=== PATIENT | male | born 1955 | race Caucasian/White ===

== ENCOUNTER 2021-12-23 11:48 | Inpatient (IN) ==
[2021-12-23] MEDS ORDERED: Heparin 1,000 UNITS/500 mL 500 ML ONE ×2 (11:50→14:31)
[2021-12-23] MEDS ORDERED: 0.9 % Sodium Chloride 2,000 ML ONE (11:50)
[2021-12-23] MEDS ORDERED: *HR* Heparin 10,000 UNIT/10 ML VIAL ONE (11:50)
[2021-12-23] MEDS ORDERED: Iopamidol - 370 200 ML INFUS..BTL ONE ×3 (11:50→14:53)
[2021-12-23] MEDS ORDERED: Nitroglycerin 1,000 MCG/5 ML VIAL IV ONE ×2 (11:50→14:50)
[2021-12-23] MEDS ORDERED: *HR* Bivalirudin 250 MG VIAL IVC ONE ×2 (12:11→14:14)
[2021-12-23] MEDS ORDERED: *HR* Midazolam HCl 2 MG/2 ML VIAL ONE ×2 (13:10→14:43)
[2021-12-23] MEDS ORDERED: *HR* FentaNYL (PF) 100 MCG/2 ML VIAL ONE (13:10)
[2021-12-23] MEDS ORDERED: *HR* Atropine Sulfate 1 MG/10 ML SYRINGE ONE ×2 (13:34→16:08)
[2021-12-23] MEDS ORDERED: Acetaminophen 325 MG TABLET PO PRN (16:00)
[2021-12-23] MEDS ORDERED: 0.9 % Sodium Chloride 1,000 ML IVC SCH (16:00)
[2021-12-23] MEDS ORDERED: Nitroglycerin 0.4 MG TAB.SUBL SL PRN (16:00)
[2021-12-23] MEDS ORDERED: Metoprolol XL (24 HR) Succ 25 MG TAB.ER.24H PO SCH (16:15)
[2021-12-23] MEDS: Nicotine 14 MG PATCH.TD24 TD SCH (16:46)
[2021-12-23 17:11] LABS: Basophils % 0.2 %; Eosinophils % 0.1 %; Hematocrit 46.2 % (37.5-50.1); Hemoglobin 15.5 g/dL (12.9-16.9); Immature Granulocytes % 0.4 % (0-4); Lymphocytes # 1.1 K/mcL (0.6-4.6); Lymphocytes % 9.1 %; Mean Corpuscular HGB Conc 33.5 g/dL (31.6-35.5); Mean Corpuscular Hemoglobin 31.3 pg (28.0-33.3); Mean Corpuscular Volume 93.1 fL (83.0-100.0); Mean Platelet Volume 9.6 fL (9.4-12.4); Monocytes # 0.5 K/mcL (0.0-1.3); Monocytes % 4.2 %; Neutrophils # 10.5 K/mcL (1.6-8.9); Platelet Count 205 K/mcL (140-400); Red Blood Count 4.96 M/mcL (4.19-5.50); White Blood Count 12.2 K/mcL (4.3-11.1)
[2021-12-23 17:40] LABS: BUN/Creatinine Ratio 13 (6-26); Blood Urea Nitrogen 11 mg/dL (8-23); Carbon Dioxide 19 mEq/L (23-29); Chloride 109 mEq/L (98-107); Glucose 112 mg/dL (70-105); Osmolality,Calculated 280 (280-300); Potassium 4.5 mEq/L (3.5-5.1); Sodium 135 mEq/L (136-145); Troponin I 24.52 ng/mL (< 0.04)
[2021-12-23 17:53] LABS: Calcium 7.8 mg/dL (8.6-10.3)
[2021-12-23] MEDS: *HR* Ticagrelor 90 MG TABLET PO SCH (19:46)
[2021-12-24 01:16] LABS: Basophils % 0.2 %; Eosinophils # 0.1 K/mcL (0.0-0.6); Eosinophils % 0.5 %; Hematocrit 43.4 % (37.5-50.1); Hemoglobin 14.6 g/dL (12.9-16.9); Immature Granulocytes % 0.4 % (0-4); Lymphocytes # 1.6 K/mcL (0.6-4.6); Lymphocytes % 13.9 %; Mean Corpuscular HGB Conc 33.6 g/dL (31.6-35.5); Mean Corpuscular Hemoglobin 31.1 pg (28.0-33.3); Mean Corpuscular Volume 92.3 fL (83.0-100.0); Mean Platelet Volume 10.1 fL (9.4-12.4); Monocytes # 0.8 K/mcL (0.0-1.3); Neutrophils # 9.2 K/mcL (1.6-8.9); Platelet Count 222 K/mcL (140-400); White Blood Count 11.8 K/mcL (4.3-11.1)
[2021-12-24 01:21] LABS: Estimated Average Glucose 108 mg/dl; Hemoglobin A1C 5.4 %
[2021-12-24 01:48] LABS: BUN/Creatinine Ratio 15 (6-26); Blood Urea Nitrogen 13 mg/dL (8-23); Carbon Dioxide 21 mEq/L (23-29); Chloride 110 mEq/L (98-107); Chol/HDL Ratio 5.4 (0-4.9); Cholesterol 189 mg/dL (< 200); Glucose 143 mg/dL (70-105); HDL Cholesterol 35 mg/dL (40-59); LDL Cholesterol,Calculated 131 mg/dL (< 100); Osmolality,Calculated 289 (280-300); Potassium 3.8 mEq/L (3.5-5.1); Sodium 138 mEq/L (136-145); Triglycerides 116 mg/dL (< 150); Troponin I > 73.00 ng/mL (< 0.04)
[2021-12-24] MEDS ORDERED: *HR* Heparin 5,000 UNIT/ML VIAL SQ SCH (09:00)
[2021-12-24] MEDS ORDERED: lisinopriL 5 MG TABLET PO SCH (09:00)
[2021-12-24] MEDS ORDERED: Iopamidol - 370 500 ML MLS IVP ONE (09:21)
[2021-12-24] MEDS: Aspirin 81 MG TAB.CHEW PO SCH (10:19)
[2021-12-24] MEDS: *HR* Ticagrelor 90 MG TABLET PO SCH ×2 (10:19→21:15)
[2021-12-24] MEDS: Nicotine 14 MG PATCH.TD24 TD SCH (10:20)
[2021-12-24] MEDS ORDERED: *HR* Heparin 5,000 UNIT/ML VIAL IVP ONE (11:08)
[2021-12-24] MEDS ORDERED: *HR* Heparin 5,000 UNIT/ML VIAL IVP PRN ×2 (11:08)
[2021-12-24 12:09] LABS: Hematocrit 44.5 % (37.5-50.1); Mean Corpuscular HGB Conc 33.7 g/dL (31.6-35.5); Mean Corpuscular Hemoglobin 30.7 pg (28.0-33.3); Mean Corpuscular Volume 91.2 fL (83.0-100.0); Platelet Count 221 K/mcL (140-400); Red Blood Count 4.88 M/mcL (4.19-5.50); Red Cell Distribution Width 12.8 % (11.5-14.5); White Blood Count 11.1 K/mcL (4.3-11.1)
[2021-12-24 12:19] LABS: Heparin anti-factor XA UFH < 0.04 IU/mL (0.30-0.70); INR 1.1; Prothrombin Time 12.3 Seconds (9.4-12.1)
[2021-12-24] MEDS: Heparin 25,000UNIT/250ML 1/2NS 25,000 UNIT/250 ML IV.SOLN IVC SCH (16:02)
[2021-12-24 18:05] LABS: Bacteria,Urine Few per hpf (None-Few); Bilirubin,Urine Negative (Negative); Blood,Urine Trace (Negative); Clarity,Urine Turbid (Clear); Color,Urine Light-Yellow (Yellow); Glucose,Urine (UA) Normal (Normal); Ketones,Urine Negative (Negative); Leukocyte Esterase,Urine Moderate (Negative); Mucus,Urine Few per lpf (None-Few); Nitrite,Urine Negative (Negative); Protein,Urine Negative (Neg-Trace); RBC,Urine 0-3 per hpf (0-3); Specific Gravity,Urine 1.016 (1.010-1.025); Squamous Epithelial Cell,Urine Few per hpf (None-Few); Urobilinogen,Urine Normal (Normal); WBC,Urine 50-100 per hpf (0-3)
[2021-12-25] MEDS: *HR* Ticagrelor 90 MG TABLET PO SCH (08:52)
[2021-12-25] MEDS: Nicotine 14 MG PATCH.TD24 TD SCH (08:52)
[2021-12-25] MEDS: Aspirin 81 MG TAB.CHEW PO SCH (08:52)
[2021-12-25 09:38] LABS: Hemoglobin 15.7 g/dL (12.9-16.9); Mean Corpuscular HGB Conc 34.1 g/dL (31.6-35.5); Mean Corpuscular Hemoglobin 30.8 pg (28.0-33.3); Mean Corpuscular Volume 90.4 fL (83.0-100.0); Mean Platelet Volume 10.1 fL (9.4-12.4); Platelet Count 225 K/mcL (140-400); Red Blood Count 5.09 M/mcL (4.19-5.50); Red Cell Distribution Width 12.4 % (11.5-14.5); White Blood Count 10.5 K/mcL (4.3-11.1)
[2021-12-25] MEDS: Heparin 25,000UNIT/250ML 1/2NS 25,000 UNIT/250 ML IV.SOLN IVC SCH (09:40)
[2021-12-25 09:46] LABS: BUN/Creatinine Ratio 12 (6-26); Blood Urea Nitrogen 10 mg/dL (8-23); Calcium 8.4 mg/dL (8.6-10.3); Carbon Dioxide 22 mEq/L (23-29); Chloride 109 mEq/L (98-107); Glucose 110 mg/dL (70-105); Osmolality,Calculated 288 (280-300); Potassium 3.8 mEq/L (3.5-5.1); Sodium 139 mEq/L (136-145)
[2021-12-25] MEDS: 0.9 % Sodium Chloride 1,000 ML IVC SCH (10:49)
[2021-12-25] MEDS ORDERED: Heparin 1,000 UNITS/500 mL 500 ML ONE ×2 (13:18→13:25)
[2021-12-25] MEDS ORDERED: Iopamidol - 370 200 ML INFUS..BTL ONE ×2 (13:18→13:25)
[2021-12-25] MEDS ORDERED: Nitroglycerin 1,000 MCG/5 ML VIAL IV ONE (13:18)
[2021-12-25] MEDS ORDERED: *HR* Heparin 10,000 UNIT/10 ML VIAL ONE (13:18)
[2021-12-25] MEDS ORDERED: 0.9 % Sodium Chloride 2,000 ML ONE (13:18)
[2021-12-25] MEDS ORDERED: *HR* FentaNYL (PF) 100 MCG/2 ML VIAL ONE (13:52)
[2021-12-25] MEDS ORDERED: *HR* Midazolam HCl 2 MG/2 ML VIAL ONE (13:52)
[2021-12-25] MEDS ORDERED: *HR* Norepinephrine 4 MG/4 ML VIAL IVC ONE (14:23)
[2021-12-25] MEDS ORDERED: D5% in Water 250 ML ONE (14:23)
[2021-12-25] MEDS ORDERED: methylPREDNISolone 125 MG/2 ML VIAL ONE (14:41)
[2021-12-25] MEDS ORDERED: Tirofiban 5 MG/100 mL 5 MG/100 ML VIAL IV ONE (14:47)
[2021-12-25] MEDS: cefTRIAXone 1,000 MG in 0.9 % Sodium Chloride 10 ML IVP SCH (15:50)
[2021-12-25] MEDS ORDERED: Ondansetron 4 MG/2 ML VIAL IVP PRN (20:34)
[2021-12-26] MEDS: 0.9 % Sodium Chloride 1,000 ML IVC SCH (01:06)
[2021-12-26 05:35] LABS: Basophils % 0.1 %; Hematocrit 40.3 % (37.5-50.1); Immature Granulocytes % 0.5 % (0-4); Lymphocytes % 8.1 %; Mean Corpuscular Hemoglobin 31.1 pg (28.0-33.3); Mean Corpuscular Volume 91.6 fL (83.0-100.0); Mean Platelet Volume 10.5 fL (9.4-12.4); Monocytes # 0.5 K/mcL (0.0-1.3); Monocytes % 4.3 %; Neutrophils # 10.3 K/mcL (1.6-8.9); Platelet Count 218 K/mcL (140-400); Red Cell Distribution Width 12.8 % (11.5-14.5); White Blood Count 11.8 K/mcL (4.3-11.1)
[2021-12-26 05:39] LABS: Hemoglobin 13.7 g/dL (12.9-16.9)
[2021-12-26 05:44] LABS: INR 1.3; Prothrombin Time 14.1 Seconds (9.4-12.1)
[2021-12-26 05:59] LABS: BUN/Creatinine Ratio 17 (6-26); Blood Urea Nitrogen 15 mg/dL (8-23); Calcium 8.2 mg/dL (8.6-10.3); Carbon Dioxide 21 mEq/L (23-29); Chloride 112 mEq/L (98-107); Glucose 136 mg/dL (70-105); Osmolality,Calculated 293 (280-300); Potassium 3.9 mEq/L (3.5-5.1); Sodium 140 mEq/L (136-145)
[2021-12-26] MEDS: Heparin 25,000UNIT/250ML 1/2NS 25,000 UNIT/250 ML IV.SOLN IVC SCH (08:44)
[2021-12-26] MEDS: Nicotine 14 MG PATCH.TD24 TD SCH (09:15)
[2021-12-26] MEDS: Aspirin 81 MG TAB.CHEW PO SCH (09:16)
[2021-12-26] MEDS: cefTRIAXone 1,000 MG in 0.9 % Sodium Chloride 10 ML IVP SCH (09:16)
[2021-12-26] MEDS ORDERED: Warfarin perPT PO PRN (18:00)
[2021-12-26] MEDS ORDERED: *HR* Warfarin 5 MG TABLET PO ONE (18:00)
[2021-12-27 04:19] LABS: Basophils # 0.1 K/mcL (0.0-0.2); Basophils % 0.5 %; Eosinophils # 0.1 K/mcL (0.0-0.6); Eosinophils % 1.1 %; Hematocrit 37.2 % (37.5-50.1); Hemoglobin 12.4 g/dL (12.9-16.9); Immature Granulocytes % 0.3 % (0-4); Lymphocytes # 2.5 K/mcL (0.6-4.6); Lymphocytes % 25.9 %; Mean Corpuscular HGB Conc 33.3 g/dL (31.6-35.5); Mean Corpuscular Hemoglobin 30.9 pg (28.0-33.3); Mean Corpuscular Volume 92.8 fL (83.0-100.0); Mean Platelet Volume 10.5 fL (9.4-12.4); Monocytes # 0.7 K/mcL (0.0-1.3); Monocytes % 6.8 %; Neutrophils # 6.4 K/mcL (1.6-8.9); Platelet Count 186 K/mcL (140-400); Red Blood Count 4.01 M/mcL (4.19-5.50); Red Cell Distribution Width 13.2 % (11.5-14.5); Segmented Neutrophils % 65.4 %; White Blood Count 9.7 K/mcL (4.3-11.1)
[2021-12-27 04:21] LABS: Heparin anti-factor XA UFH 0.45 IU/mL (0.30-0.70); INR 1.1; Prothrombin Time 12.5 Seconds (9.4-12.1)
[2021-12-27 04:31] LABS: Calcium 8.1 mg/dL (8.6-10.3); Potassium 3.6 mEq/L (3.5-5.1)
[2021-12-27] MEDS: Heparin 25,000UNIT/250ML 1/2NS 25,000 UNIT/250 ML IV.SOLN IVC SCH (04:46)
[2021-12-27] MEDS: Aspirin 81 MG TAB.CHEW PO SCH (08:24)
[2021-12-27] MEDS: cefTRIAXone 1,000 MG in 0.9 % Sodium Chloride 10 ML IVP SCH (08:24)
[2021-12-27] MEDS: Nicotine 14 MG PATCH.TD24 TD SCH (08:24)
[2021-12-27] MEDS ORDERED: lisinopriL 5 MG TABLET PO SCH (09:00)
[2021-12-27] MEDS ORDERED: Acetaminophen 325 MG TABLET PO PRN (16:40)
[2021-12-27] MEDS ORDERED: Ondansetron 4 MG/2 ML VIAL IVP PRN (16:40)
[2021-12-27] MEDS ORDERED: *HR* Heparin 5,000 UNIT/ML VIAL IVP PRN ×2 (16:40)
[2021-12-27] MEDS ORDERED: Nitroglycerin 0.4 MG TAB.SUBL SL PRN (16:40)
[2021-12-27] MEDS ORDERED: Warfarin perPT PO PRN (16:40)
[2021-12-27] MEDS ORDERED: *HR* Warfarin 5 MG TABLET PO ONE ×2 (18:00)
[2021-12-28] MEDS: Heparin 25,000UNIT/250ML 1/2NS 25,000 UNIT/250 ML IV.SOLN IVC SCH ×3 (01:05→20:51)
[2021-12-28 05:10] LABS: INR 1.4; Prothrombin Time 15.2 Seconds (9.4-12.1)
[2021-12-28] MEDS: Spironolactone 25 MG TABLET PO SCH (08:09)
[2021-12-28] MEDS: Nicotine 14 MG PATCH.TD24 TD SCH (08:09)
[2021-12-28] MEDS: Aspirin 81 MG TAB.CHEW PO SCH (08:09)
[2021-12-28 08:27] LABS: Basophils # 0.1 K/mcL (0.0-0.2); Basophils % 0.6 %; Eosinophils # 0.1 K/mcL (0.0-0.6); Eosinophils % 1.5 %; Hemoglobin 12.2 g/dL (12.9-16.9); Immature Granulocytes % 0.3 % (0-4); Lymphocytes # 2.3 K/mcL (0.6-4.6); Lymphocytes % 28.9 %; Mean Corpuscular HGB Conc 33.9 g/dL (31.6-35.5); Mean Corpuscular Hemoglobin 31.5 pg (28.0-33.3); Mean Platelet Volume 10.7 fL (9.4-12.4); Monocytes # 0.6 K/mcL (0.0-1.3); Monocytes % 7.3 %; Neutrophils # 4.8 K/mcL (1.6-8.9); Platelet Count 175 K/mcL (140-400); Red Blood Count 3.87 M/mcL (4.19-5.50); Segmented Neutrophils % 61.4 %; White Blood Count 7.8 K/mcL (4.3-11.1)
[2021-12-28 08:41] LABS: BUN/Creatinine Ratio 13 (6-26); Blood Urea Nitrogen 12 mg/dL (8-23); Carbon Dioxide 24 mEq/L (23-29); Chloride 110 mEq/L (98-107); Glucose 95 mg/dL (70-105); Osmolality,Calculated 290 (280-300); Potassium 3.7 mEq/L (3.5-5.1); Sodium 140 mEq/L (136-145)
[2021-12-28] MEDS ORDERED: cefTRIAXone 1,000 MG in 0.9 % Sodium Chloride 10 ML IVP SCH (09:00)
[2021-12-28] MEDS ORDERED: Spironolactone 25 MG TABLET PO SCH (09:00)
[2021-12-28] MEDS: lisinopriL 5 MG TABLET PO SCH (10:16)
[2021-12-28] MEDS ORDERED: cephALEXin 500 MG CAPSULE PO SCH ×2 (15:00→21:00)
[2021-12-28] MEDS ORDERED: *HR* Warfarin 2.5 MG TABLET PO ONE (18:00)
[2021-12-28] MEDS: cephALEXin 500 MG CAPSULE PO SCH (20:52)
[2021-12-29 02:02] LABS: INR 1.8; Prothrombin Time 19.7 Seconds (9.4-12.1)
[2021-12-29] MEDS: Aspirin 81 MG TAB.CHEW PO SCH (08:25)
[2021-12-29] MEDS: Nicotine 14 MG PATCH.TD24 TD SCH (08:25)
[2021-12-29] MEDS: Spironolactone 25 MG TABLET PO SCH (08:26)
[2021-12-29] MEDS: lisinopriL 5 MG TABLET PO SCH (08:26)
[2021-12-29] MEDS: cephALEXin 500 MG CAPSULE PO SCH ×3 (08:26→21:20)
[2021-12-29] MEDS ORDERED: *HR* Warfarin 2.5 MG TABLET PO ONE (18:00)
[2021-12-29] MEDS: Heparin 25,000UNIT/250ML 1/2NS 25,000 UNIT/250 ML IV.SOLN IVC SCH (18:17)
[2021-12-29] MEDS ORDERED: *HR* Heparin 5,000 UNIT/ML VIAL IVP PRN ×2 (19:12)
[2021-12-29] MEDS ORDERED: Ondansetron 4 MG/2 ML VIAL IVP PRN (19:12)
[2021-12-29] MEDS ORDERED: Heparin 25,000UNIT/250ML 1/2NS 25,000 UNIT/250 ML IV.SOLN IVC SCH (19:12)
[2021-12-29] MEDS ORDERED: Warfarin perPT PO PRN (19:12)
[2021-12-29] MEDS ORDERED: Nitroglycerin 0.4 MG TAB.SUBL SL PRN (19:12)
[2021-12-29] MEDS ORDERED: Acetaminophen 325 MG TABLET PO PRN (19:12)
[2021-12-30 07:07] LABS: Heparin anti-factor XA UFH 0.73 IU/mL (0.30-0.70); INR 1.8; Prothrombin Time 19.7 Seconds (9.4-12.1)
[2021-12-30] MEDS: Nicotine 14 MG PATCH.TD24 TD SCH (08:58)
[2021-12-30] MEDS: cephALEXin 500 MG CAPSULE PO SCH ×3 (08:59→20:55)
[2021-12-30] MEDS: Spironolactone 25 MG TABLET PO SCH (09:00)
[2021-12-30] MEDS: lisinopriL 5 MG TABLET PO SCH (09:00)
[2021-12-30] MEDS: Metoprolol XL (24 HR) Succ 25 MG TAB.ER.24H PO SCH (09:00)
[2021-12-30] MEDS: Aspirin 81 MG TAB.CHEW PO SCH (09:00)
[2021-12-30 10:29] LABS: Hematocrit 38.2 % (37.5-50.1); Hemoglobin 12.8 g/dL (12.9-16.9); Mean Corpuscular HGB Conc 33.5 g/dL (31.6-35.5); Mean Corpuscular Hemoglobin 30.5 pg (28.0-33.3); Mean Corpuscular Volume 91.2 fL (83.0-100.0); Mean Platelet Volume 10.6 fL (9.4-12.4); Platelet Count 195 K/mcL (140-400); Red Blood Count 4.19 M/mcL (4.19-5.50); White Blood Count 7.8 K/mcL (4.3-11.1)
[2021-12-30 10:40] LABS: BUN/Creatinine Ratio 11 (6-26); Blood Urea Nitrogen 10 mg/dL (8-23); Calcium 8.2 mg/dL (8.6-10.3); Carbon Dioxide 25 mEq/L (23-29); Chloride 109 mEq/L (98-107); Glucose 96 mg/dL (70-105); Osmolality,Calculated 289 (280-300); Phosphorous 3.2 mg/dL (2.7-4.5); Potassium 3.6 mEq/L (3.5-5.1); Sodium 140 mEq/L (136-145)
[2021-12-30] MEDS ORDERED: *HR* Warfarin 2.5 MG TABLET PO ONE (18:00)
[2021-12-30 23:18] VITALS: O2SAT 95
[2021-12-31 07:30] VITALS: BP 110/62; PULSE 57; TEMP 98.1
[2021-12-31] MEDS: Nicotine 14 MG PATCH.TD24 TD SCH (09:12)
[2021-12-31] MEDS: cephALEXin 500 MG CAPSULE PO SCH (09:12)
[2021-12-31] MEDS: Spironolactone 25 MG TABLET PO SCH (09:13)
[2021-12-31] MEDS: Metoprolol XL (24 HR) Succ 25 MG TAB.ER.24H PO SCH (09:13)
[2021-12-31] MEDS: lisinopriL 5 MG TABLET PO SCH (09:13)
[2021-12-31] MEDS: Aspirin 81 MG TAB.CHEW PO SCH (09:13)
[2021-12-31] MEDS ORDERED: *HR* Warfarin 5 MG TABLET PO ONE (18:00)
[2021-12-31] MEDS ORDERED: *HR* Warfarin 2.5 MG TABLET PO SCH ×2 (18:00)
== END 2021-12-31 11:30 | disposition home or self-care (01) | DRG 246 ==
LOC: ICNU 15:29 → 2NNU 12-29 18:57
PROVIDERS: ADMIT Internal Medicine Interventional Cardiology; ATTEND Internal Medicine Clinical Cardiac Electrophysiology